=== PATIENT | female | born 1985 | race Caucasian/White ===

== ENCOUNTER 2016-09-22 21:23 | Emergency (ER) ==
[2016-09-22 21:37] VITALS: BP 128/85; TEMP 98.4; BMI 16.1
[2016-09-22] MEDS ORDERED: ZOFRAN 4 MG/2 ML IM STA (21:47)
[2016-09-22] MEDS ORDERED: MORPHINE 4 MG/ML SYRINGE IM STA (21:47)
[2016-09-22 21:56] LABS: BASOPHILS # (AUTO) 0.1 K/uL (0-0.2); BASOPHILS % (AUTO) 0.5 % (0.0-3.0); EOSINOPHILS # (AUTO) 0.1 K/ul (0.0-0.7); EOSINOPHILS % (AUTO) 0.6 % (0.0-7.0); HEMATOCRIT 35.2 % (37.0-47.0); HEMOGLOBIN 11.9 g/dl (12.0-16.0); IMMATURE GRANULOCYTE % (AUTO) 0.4 % (0.0-5.0); LYMPHOCYTES % (AUTO) 9.6 (10.0-50.0); MEAN CORPUSCULAR HEMOGLOBIN 31.4 pg (27.0-31.0); MEAN CORPUSCULAR HGB CONC 33.8 (31.8-35.4); MEAN CORPUSCULAR VOLUME 92.9 fl (81.0-99.0); MONOCYTES # (AUTO) 0.6 K/uL (0.4-2.0); MONOCYTES % (AUTO) 5.2 (0-10); NEUTROPHILS # (AUTO) 8.9 K/ul (2.0-6.9); NEUTROPHILS % (AUTO) 83.7; PLATELET COUNT 278 10^3/uL (140-440); RED BLOOD COUNT 3.79 10^6/ul (4.20-5.40); WHITE BLOOD COUNT 10.61 K/ul (4.6-10.2)
[2016-09-22 21:58] LABS: BILIRUBIN,URINE Negative (NEGATIVE); KETONES,URINE Negative (NEGATIVE); LEUKOCYTE ESTERASE ,URINE Negative (NEGATIVE); NITRITE,URINE Negative (NEGATIVE); PROTEIN,URINE 2+ (NEGATIVE); URINE, BLOOD 3+ (NEGATIVE)
[2016-09-22 22:03] LABS: ADD URINE MICROSCOPIC YES
[2016-09-22 22:12] LABS: SERUM PREGNANCY INTERNAL QC INTERNAL QC VALID
[2016-09-22 22:17] LABS: ALBUMIN 4.3 g/dL (3.4-5.0); ALBUMIN/GLOBULIN RATIO 1.39; BILIRUBIN,TOTAL 0.23 mg/dL (0.00-1.20); BUN/CREATININE RATIO 13.63; CALCIUM 9.3 mg/dL (8.2-10.2); CREATININE 0.66 mg/dL (0.60-1.30); TOTAL PROTEIN 7.4 g/dL (6.4-8.2)
[2016-09-22] MEDS ORDERED: TORADOL IM STA (22:31)
--- NOTE | 2016-09-22 22:37 | CT ---
EXAM: CT abdomen pelvis without intravenous contrast 09/26/2016. Sagittal and coronal reformatted images obtained HISTORY: Right-sided abdominal pain COMPARISON: 07/23/2014 FINDINGS: The liver, gallbladder, adrenal glands, spleen and pancreas show no acute abnormality. There is evidence of bowel obstruction. Multifocal bilateral nephrolithiasis. Moderate right hydroureteronephrosis. There appear to be two immediately adjacent 3 mm diameter stones within the distal right ureter. There is no evidence of left sided urinary obstruction. The urinary bladder is not well visualized. No acute osseous abnormality.. IMPRESSION: There are two adjacent 3 mm diameter stones within the distal right ureter. Moderate r ight hydroureteronephrosis. Additional multifocal bilateral nephrolithiasis.
[2016-09-22] MEDS ORDERED: FLOMAX PO STA (23:17)
--- NOTE | 2016-09-22 23:21 | ED.PDOC ---
General ED Provider: Dr. MAZIN MURRAY-ER Chief Complaint: Back Pain Stated Complaint: im hurting Time Seen by Physician: 21:30 Mode of Arrival: Walk-In Information Source: Patient Exam Limitations: No limitations Primary Care Provider: KARI ALBERTO Nursing and Triage Documentation Reviewed and Agree: Yes GI Complaint Exam - Abdominal Pain Complaint/Exam Onset: Gradual Duration: 2 hrous Symptoms Are: Still present Timing: Constant Initial Severity: Mild Current Severity: Moderate Location of Pain: RUQ Radiates To: Reports: Back, Flank Character: Reports: Dull, Aching Alleviating: Reports: None Associated Signs and Symptoms: Reports: Back pain. Denies: Diaphoresis, Fever, Cough, Chest pain, Dizziness, Constipation, Blood in stool, Dysuria, Urinary frequency, Decreased urine output, Decreased appetite, Vaginal bleeding, Vaginal discharge, Nausea, Diarrhea, Sore throat, Decreased activity Related History: Reports: Similar episode Ovarian Torsion Risk Factors: Reports: Reproductive age Surgical Obstruction Risk Factors: Reports: None Patient Rh Status: Unknown Abdominal Findings: Present: None Differential Diagnoses: Renal Colic, Ureteral Stone Review of Systems - Review Of Systems Constitutional: Reports: No symptoms Eyes: Reports: No symptoms Ears, Nose, Mouth, Throat: Reports: No symptoms Respiratory: Reports: No symptoms Cardiac: Reports: No symptoms GI: Reports: Abdominal pain : Reports: Flank pain, Pain Musculoskeletal: Reports: Back pain Skin: Reports: No symptoms Neurological: Reports: No symptoms Endocrine: Reports: No symptoms Hematologic/Lymphatic: Reports: No symptoms All Other Systems: Reviewed and Negative Past Medical History - Past Medical History Previously Healthy: Yes Endocrine: Reports: Unknown Cardiovascular: Reports: Unknown Respiratory: Reports: Unknown Hematological: Reports: Unknown Gastrointestinal: Reports: Unknown Genitourinary: Reports: Unknown Neuro/Psych: Reports: Unknown Musculoskeletal: Reports: Unknown Cancer: Reports: Unknown Last Menstrual Period: 09/05/16 - Surgical History General Surgical History: Reports: Unknown - Family History Family History: Reports: Unknown - Social History Smoking Status: Current every day smoker Hx Substance Use: No Alcohol Screening: None Lives: With family - Immunizations Tetanus Shot up to Date: Yes Physical Exam - Physical Exam Appearance: Well-appearing, No pain distress, Well-nourished Eyes: EZE, EOMI, Conjunctiva clear ENT: Ears normal, Nose normal, Oropharynx normal Neck: Supple Respiratory: Airway patent, Breath sounds clear, Breath sounds equal, Respirations nonlabored Cardiovascular: RRR GI/: Soft, Nontender, No masses, Bowel sounds normal, No Organomegaly Musculoskeletal: Normal strength, ROM intact, No edema, No calf tenderness Skin: Warm, Dry, Normal color Neurological: Sensation intact, Motor intact, Reflexes intact, Cranial nerves intact, Alert, Oriented Psychiatric: Affect appropriate, Mood appropriate, Anxious Interpretation - Radiology Interpretation Radiology Interpretation By: Radiologist Radiology Results: Positive Exam Interpreted: CT Scan Critical Care Note - Critical Care Note Total Time (mins): 0 Course - Course Hematology/Chemistry: 09/22/16 21:55 09/22/16 21:55 Orders, Labs, Meds: Lab Review 09/22/16 09/22/16 21:50 21:55 WBC 10.61 H RBC 3.79 L Hgb 11.9 L Hct 35.2 L MCV 92.9 MCH 31.4 H MCHC 33.8 RDW Coeff of Ignacio 12.0 Plt Count 278 Immature Gran % (Auto) 0.4 Neut % (Auto) 83.7 Lymph % (Auto) 9.6 L Colbert % (Auto) 5.2 Eos % (Auto) 0.6 Baso % (Auto) 0.5 Immature Gran # (Auto) 0.0 Neut # 8.9 H Lymph # 1.0 Colbert # 0.6 Eos # 0.1 Baso # 0.1 Sodium 139 Potassium 4.0 Chloride 104 Carbon Dioxide 25 Anion Gap 14.0 BUN 9 Creatinine 0.66 Estimated GFR (MDRD) 105.00 BUN/Creatinine Ratio 13.63 Glucose 118 H Calcium 9.3 Total Bilirubin 0.23 AST 14 L ALT 7 L Alkaline Phosphatase 59 Total Protein 7.4 Albumin 4.3 Globulin 3.1 Albumin/Globulin Ratio 1.39 Amylase 68 Lipase 33 Serum , Qual Negative Urine Color Yellow Urine Clarity Cloudy Urine pH 6.0 Ur Specific Durand >=1.030 Urine Protein 2+ Urine Glucose (UA) Negative Urine Ketones Negative Urine Blood 3+ Urine Nitrite Negative Urine Bilirubin Negative Urine Urobilinogen 0.2 Ur Leukocyte Esterase Negative Urine Microscopic RBC 50-100 Ur Squamous Epith Cells 2-5 Urine Mucus Trace Orders Category Date Time Status AMYLASE Stat LAB 09/22/16 21:55 Completed CBC W/ AUTO DIFF Stat LAB 09/22/16 21:55 Completed COMPREHENSIVE METABOLIC PANEL Stat LAB 09/22/16 21:55 Completed LIPASE Stat LAB 09/22/16 21:55 Completed SERUM Stat LAB 09/22/16 21:55 Completed URINALYSIS C & S IF INDICATED Stat LAB 09/22/16 21:50 Completed Ketorolac Tromethamine [Toradol] MEDS 09/22/16 22:31 Discontinued 60 mg IM ONCE STA Tamsulosin HCl [Flomax] MEDS 09/22/16 23:17 Stat 0.4 mg PO ONCE STA CT ABDOMEN/PELVIS WO CONTRAST Stat RADS 09/22/16 21:47 Completed Medications Generic Name Dose Route Start Last Admin Trade Name Freq PRN Reason Stop Dose Admin Tamsulosin HCl 0.4 mg 09/22/16 23:17 Flomax PO 09/22/16 23:18 ONCE STA Discontinued Medications Generic Name Dose Route Start Last Admin Trade Name Freq PRN Reason Stop Dose Admin Ketorolac Tromethamine 60 mg 09/22/16 22:31 Toradol IM 09/22/16 22:32 ONCE STA Vital Signs: Temp Pulse Resp BP Pulse Ox 09/22/16 21:25 98.4 F 86 20 128/85 98 Departure - Departure Time of Disposition: 23:21 Disposition: HOME SELF-CARE Discharge Problem: Ureteric stone Instructions: Kidney Stones (ED), Renal Colic (ED), How to Strain Your Urine ( ED) Condition: Good Pt referred to PMD for follow-up: Yes Additional Instructions: fluids---strain all urine--norco 7.5mg q 4hrs prn pain#6--flomax 0.4 q daily #2 --f/u with pcp--use formuila instead of breast milk for pain Allergies/Adverse Reactions: Allergies No Known Allergies Allergy (Verified 09/22/16 21:33) Home Medications: Ambulatory Orders Vit W-Ca,Fe,FA(<1 mg) [ Vitamins] 1 tab PO DAILY 09/22/16 Disposition Discussed With: Patient, Family
== END 2016-09-22 23:25 | disposition home or self-care (01) ==
LOC: ED 21:23
DX: N20.1 Calculus of ureter (principal); F17.210 Nicotine dependence, cigarettes, uncomplicated
CPT/HCPCS: 36415; 80053; 81001; 82150; 83690; 84703; 85025; 99283

== ENCOUNTER 2017-05-01 12:48 | Outpatient (CLI) | END 2017-05-01 12:49 | disposition home or self-care (01) | LOC: LAB 12:48 | PROVIDERS: ATTEND Family Medicine | DX: Z00.00 Encounter for general adult medical examination without abnormal findings (principal) | CPT/HCPCS: 36415; 80053; 80061; 85025 ==

== ENCOUNTER 2017-09-05 07:43 | Outpatient (CLI) | END 2017-09-05 07:44 | disposition home or self-care (01) | LOC: FCC-LAB 07:43 | PROVIDERS: ATTEND Family Medicine | DX: R05 Cough (principal) | CPT/HCPCS: 87804 ==

== ENCOUNTER 2018-12-08 09:15 | Outpatient (CLI) ==
--- NOTE | 2018-12-08 12:03 | US ---
EXAM: PELVIC ULTRASOUND COMPLETE HISTORY: Left lower quadrant pain FINDINGS: Ultrasound pelvis transvaginal. Transvaginal approach imaging was performed for improved resolution and anatomic definition. The uterus measured 8.6 x 3.6 x 5.3 cm. No fibroids or myometrial masses were seen. Endometrial str ipe appeared symmetric and had normal thickness at 0.32 cm. The right ovary measured 2.6 x 2.0 x 2.5 cm and the left ovary 2.5 x 1.7 x 1.9 cm. Ovaries appeared to have adequate blood flow and there were scattered small follicles on the ovaries measuring 1 cm or less. No ascites. IMPRESSION: 1. Findings within normal limits sonographically.
== END 2018-12-08 09:16 | disposition home or self-care (01) ==
LOC: RAD 09:15
PROVIDERS: ATTEND Family Medicine
DX: R10.32 Left lower quadrant pain (principal)